=== PATIENT | female | born 1950 | race Caucasian/White ===

== ENCOUNTER → 2017-01-30 | Outpatient (CLI) | payer MEDICARE, BC ==
--- NOTE | 2017-02-04 09:55 | MM ---
Reason for exam: screening (asymptomatic). Last mammogram was performed 1 year and 3 months ago. History: Patient is postmenopausal. Family history of breast cancer in aunt at age 70 and breast cancer in cousin at age 40. Benign excisional biopsy of the right breast, 1985. 3 cyst aspirations of the right breast. Physical Findings: A clinical breast exam by your physician is recommended on an annual basis and results should be correlated with mammographic findings. MG 3D Screening Mammo W/Cad Bilateral CC and MLO view(s) were taken. Prior study comparison: November 14, 2015, mammogram, performed at [facility]. November 03, 2014, mammogram, performed at [facility]. There are scattered fibroglandular densities. Finding: There are typically benign calcifications. There is no discrete abnormality. No significant changes in finding since November 14, 2015 and November 03, 2014. ASSESSMENT: Benign, BI-RAD 2 RECOMMENDATION: Routine screening mammogram of both breasts in 1 year. Manage patient on a clinical basis.
== END | disposition home or self-care (01) ==
LOC: RADMAMWWP 16:27
PROVIDERS: ATTEND Family Medicine
DX: Z12.31 Encounter for screening mammogram for malignant neoplasm of breast (principal)
CPT/HCPCS: 77063; G0202

== ENCOUNTER → 2018-02-23 | Outpatient (CLI) | payer MEDICARE, BC ==
--- NOTE | 2018-02-25 09:26 | MM ---
Reason for exam: screening (asymptomatic). Last mammogram was performed 1 year and 1 month ago. History: Patient is postmenopausal. Family history of breast cancer in aunt at age 70 and breast cancer in cousin at age 40. Benign excisional biopsy of the right breast, 1985. 3 cyst aspirations of the right breast. Physical Findings: A clinical breast exam by your physician is recommended on an annual basis and results should be correlated with mammographic findings. MG 3D Screening Mammo W/Cad Bilateral CC and MLO view(s) were taken. Prior study comparison: January 30, 2017, bilateral MG 3d screening mammo w/cad. November 14, 2015, mammogram, performed at [facility]. There are scattered fibroglandular densities. Central asymmetric density left MLO view does not persist on 3D images. It is also stable from 2016. ASSESSMENT: Negative, BI-RAD 1 RECOMMENDATION: Routine screening mammogram of both breasts in 1 year.
== END | disposition home or self-care (01) ==
LOC: RADMAMWWP 14:50
PROVIDERS: ATTEND Family Medicine
DX: Z12.31 Encounter for screening mammogram for malignant neoplasm of breast (principal)
CPT/HCPCS: 77063; 77067

== ENCOUNTER → 2019-03-18 | Outpatient (CLI) | payer MEDICARE, BC ==
--- NOTE | 2019-03-19 11:56 | MM ---
Reason for exam: screening (asymptomatic). Last mammogram was performed 1 year and 1 month ago. History: Patient is postmenopausal. Family history of breast cancer in aunt at age 70 and breast cancer in cousin at age 40. Benign excisional biopsy of the right breast, 1985. 3 cyst aspirations of the right breast. Physical Findings: A clinical breast exam by your physician is recommended on an annual basis and results should be correlated with mammographic findings. MG 3D Screening Mammo W/Cad Bilateral CC and MLO view(s) were taken. Prior study comparison: February 23, 2018, bilateral MG 3d screening mammo w/cad. January 30, 2017, bilateral MG 3d screening mammo w/cad. The breast tissue is heterogeneously dense. This may lower the sensitivity of mammography. There are benign appearing round calcifications bilaterally. There is chronic nodularity in the right breast. There is no discrete abnormality. ASSESSMENT: Benign, BI-RAD 2 RECOMMENDATION: Routine screening mammogram of both breasts in 1 year.
== END | disposition home or self-care (01) ==
LOC: RADMAMWWP 13:52
PROVIDERS: ATTEND Family Medicine
DX: Z12.31 Encounter for screening mammogram for malignant neoplasm of breast (principal)
CPT/HCPCS: 77063; 77067

== ENCOUNTER → 2019-08-27 | Outpatient (CLI) | payer MEDICARE, BC ==
[2019-08-27 10:52] VITALS: BP 148/78; PULSE 95; RESP 18; TEMP 97.6; BMI 35.9
--- NOTE | 2019-08-27 11:30 | P.GSHP ---
History of Present Illness H&P Date: 08/27/19 Chief Complaint: pain left breast, lump under left arm The patient is a 69 year old white female with a complaint of bilateral upper outer quadrant breast pain. The pain is described as aching and sensation. It is intermittent. It does not radiate. It has been intermittent for approximately 2 years. It never goes completely away. It is approximately a level II out of a scale of 10. Nothing seems to make it better or worse. Of significance is the fact that the patient had a left lung biopsy via an incision near the left breast and a chest tube placed approximately 3 years ago. The patient has hypersensitivity pneumonitis, no cancer. The patient drinks caffeinated beverages Tea/coffee regularly. She does not smoke and is not exposed to secondhand smoke. She eats chocolate occasionally. Patient does not take any hormones or soy products. The patient also complains of some left axillary fullness. She noted this in February 2019. She did have a computed tomography scan performed in April 2019. This revealed bilateral perihilar infiltrates. Some narrowing of the right middle lobe bronchus was questionably present. A 1.8 cm pretracheal lymph node was enlarged. The ascending aorta at the level of the main pulmonary artery was noted to be 3.2 cm. 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 She additionally had a computed tomography scan of her neck performed which did not reveal any suspicious soft tissue abnormalities. The patient has recently finished a steroid taper after starting on 80 mg of prednisone a day in May. The patient has additionally had a bilateral mammogram performed on this was benign BIRADS 2, and she had limited bilateral breast ultrasounds which were negative. Repeat bilateral mammogram in February 2020 is recommended. The patient has had a 4 x 7 cm cyst removed from her right breast in the operating room in the . She has also had several breast cyst drained in the office. Family History: paternal aunt: breast cancer bilateral paternal cousin: breast cancer Hormonal History: menarche: 12 , breast fed: no, first born at 18 menopause: hysterctomy 26, done for endometriosis, took ovaries BCP: 3 years hormones: none Surgical history: 1. Total abdominal hysterectomy at 26 2. Tubal ligation 3. Appendectomy 4. Cholecystectomy 5. Hemilaminectomy 6. Lung biopsy 7. Right breast biopsy open 8. knee arthroscopy 9. Appendectomy scar revised multiple times Medical History: 1. arthritis 2. Hypersensitivity pneumonitis 3. PVC's ablation Social History: smoke: none alcohol: seldom drugs: none - Constitutional Constitutional: Denies chills, Denies fever - EENT Eyes: bilateral blurred vision, denies pain Ears: deny: decreased hearing, tinnitus Ears, nose, mouth and throat: Denies headache, Denies sore throat - Breasts Breasts: bilateral: as per HPI - Cardiovascular Comment: Ablation in the past for PVCs Cardiovascular: Reports shortness of breath, Denies chest pain - Respiratory Comment: Hypersensitivity pneumonitis, follows at [facility] and [facility] - Gastrointestinal Gastrointestinal: Denies abdominal pain, Denies diarrhea, Denies nausea, Denies vomiting - Genitourinary (Female) Genitourinary: Denies dysuria, Denies hematuria - Menstruation Menstruation: Reports post hysterectomy - Musculoskeletal Comment: arthritis - Integumentary Integumentary: Reports rash - Neurological Neurological: Denies numbness, Denies weakness - Psychiatric Psychiatric: Denies anxiety, Denies depression - Endocrine Endocrine: Reports fatigue, Denies weight change - Hematologic/Lymphatic Comment: baby aspirin - Allergic/Immunologic Allergic/Immunologic: Reports as per HPI Past Medical History History of Any Multi-Drug Resistant Organisms: MRSA Date of last positivie culture/infection: 2012 MDRO Source:: BACK SURGERY Smoking Status: Never smoker Medications and Allergies Home Medications Medication Instructions Recorded Confirmed Type Albuterol Sulfate [Proair Hfa] 1 - 2 puff INHALATION Q6HR PRN 08/27/19 08/27/19 History Aspirin 81 mg PO DAILY 08/27/19 08/27/19 History CLIDINIUM-chlordiazePOXIDE [Librax] 1 - 2 each PO AC-TID 08/27/19 08/27/19 History Ibuprofen [Motrin] 600 mg PO Q8HR PRN 08/27/19 08/27/19 History Multivitamin/Iron/Folic Acid 1 each PO DAILY 08/27/19 08/27/19 History [Centrum Women Tablet] Mycophenolate Mofetil [Cellcept] 1,000 mg PO BID 08/27/19 08/27/19 History Omeprazole [PriLOSEC] 20 mg PO AC-BID 08/27/19 08/27/19 History Triamterene-Hctz 37.5-25Mg 1 cap PO DAILY 08/27/19 08/27/19 History [Dyazide 37.5-25 Capsule] Allergies Allergy/AdvReac Type Severity Reaction Status Date / Time acetaminophen [From [place]] Allergy Unknown Unverified 08/27/19 10:44 hydrocodone [From [place]] Allergy Unknown Unverified 08/27/19 10:44 adhesive tape AdvReac Rash/Hives Unverified 08/27/19 10:44 morphine AdvReac Vomiting Unverified 08/27/19 10:44 valacyclovir [From Valtrex] AdvReac Rash/Hives Unverified 08/27/19 10:44 IVP Dye Allergy Anaphylaxis Uncoded 08/27/19 10:44 Surgical - Exam Vital Signs Temp Pulse Resp BP Pulse Ox 97.6 F 95 18 148/78 92 L 08/27/19 10:48 08/27/19 10:48 08/27/19 10:48 08/27/19 10:48 08/27/19 10:48 BMI 35.9 - General obese - Eyes normal ocular movement - ENT normal pinna, no hearing loss - Neck no masses, trachea midline, no lymphadectomy - Respiratory normal expansion, normal respiratory effort, clear to auscultation - Cardiovascular Rhythm: regular Heart Sounds: normal: S1, S2 - Abdomen no organomegaly Abdomen: soft, non tender, no guarding, no rigid, no rebound - Integumentary swelling ankles - Neurologic no disoriented, no combative - Musculoskeletal normal gait, normal posture - Psychiatric oriented to time, oriented to person, oriented to place, speech is normal, memory intact breast exam: right breast: Multiple positional exam no dominant masses or nodules of concern Right axilla: No adenopathy of concern Left breast: Multi-positional exam fibrocystic changes, no dominant masses or nodules of concern Left axilla: There appears to be axillary breast tissue in the exam it does not appear to be worrisome but is asymmetric to the other side, she has no adenopathy of concern Bra: 38 C Results Mammogram and ultrasound results reviewed Assessment and Plan Assessment: Impression: 1. breast pain 2. fibrocystic bresat disease 3. axillary bolus/probable axillary breast tissue 4. Hypersensitivity pulmonary pneumonitis 5. Patient is on a steroid wean at this time 6. Arthritis 7. cardiac ablation Plan: 1. Counseled regarding caffeine effects on breast pain patient is going to decrease this 2. Reassured regarding axillary breast tissue will follow this at this time 3. Patient is weaning off steroids she may notice some changes in her breast as she is weaned off will call if she has any concerns 4. Repeat bilateral mammogram in February 2020 with repeat examination at that time I have discussed the fibrocystic breast changes can be exacerbated by nicotine/theophylline/caffeine. The patient understands and is going to decrease her intake of these things. Additionally we have discussed that the tissue in the axilla is most likely axillary breast tissue at this time I'm not concerned if it changes she is going to see me sooner otherwise I will see her in February after her yearly mammogram. Time 40 minutes CC: Dr. Tobias
== END | disposition home or self-care (01) ==
LOC: WWCWWP 09:59
PROVIDERS: ATTEND Surgery
DX: Z53.9 Procedure and treatment not carried out, unspecified reason (principal)

== ENCOUNTER → 2020-03-23 | Outpatient (CLI) | payer MEDICARE, BC ==
[2020-03-23 11:43] VITALS: BP 144/84; PULSE 91; RESP 18; TEMP 98
--- NOTE | 2020-03-23 12:01 | P.PN ---
Subjective Progress Note Date: 03/23/20 Principal diagnosis: bilateral breast pain The patient is a 69 year old white female with a complaint of bilateral upper outer quadrant breast pain. The pain is described as aching in sensation. It is intermittent. It does not radiate. It has been intermittent for approximately 2 1/2 years. It never goes completely away. It is approximately a level II out of a scale of 10. Nothing seems to make it better or worse. Of significance is the fact that the patient had a left lung biopsy via an incision near the left breast and a chest tube placed approximately 3 years ago. The patient has hypersensitivity pneumonitis, no cancer. The patient has had decreased caffeinated beverages. She does not smoke and is not exposed to secondhand smoke. She eats chocolate occasionally. Patient does not take any hormones or soy products. Pain has improved since she was seen in August. Most recently she had a migraine headache and took several caffeinated products and did notice that the discomfort in her breast was exacerbated. The patient also complained of some left axillary fullness which has resolved. She noted this in February 2019. She did have a computed tomography scan performed in April 2019. This revealed bilateral perihilar infiltrates. Some narrowing of the right middle lobe bronchus was questionably present. A 1.8 cm pretracheal lymph node was enlarged. The ascending aorta at the level of the main pulmonary artery was noted to be 3.2 cm. 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 She additionally had a computed tomography scan of her neck performed which did not reveal any suspicious soft tissue abnormalities. The patient since then finished a steroid taper with decrease in the swelling of her axilla and her neck. The patient has additionally had a bilateral mammogram performed on this was benign BIRADS 2, and she had limited bilateral breast ultrasounds which were negative. She had a bilateral urogram performed on 6419. The patient has had a 4 x 7 cm cyst removed from her right breast in the operating room in the . She has also had several breast cyst drained in the office. Family History: paternal aunt: breast cancer bilateral paternal cousin: breast cancer Hormonal History: menarche: 12 , breast fed: no, first born at 18 menopause: hysterctomy 26, done for endometriosis, took ovaries BCP: 3 years hormones: none Surgical history: 1. Total abdominal hysterectomy at 26 2. Tubal ligation 3. Appendectomy 4. Cholecystectomy 5. Hemilaminectomy 6. Lung biopsy 7. Right breast biopsy open 8. knee arthroscopy 9. Appendectomy scar revised multiple times Medical History: 1. arthritis 2. Hypersensitivity pneumonitis 3. PVC's ablation 4. shingles Social History: smoke: none alcohol: seldom drugs: none - Constitutional Constitutional: Denies chills, Denies fever - EENT Eyes: bilateral blurred vision, denies pain Ears: deny: decreased hearing, tinnitus Ears, nose, mouth and throat: Denies headache, Denies sore throat - Breasts Breasts: bilateral: as per HPI - Cardiovascular Comment: Ablation in the past for PVCs Cardiovascular: Reports shortness of breath, Denies chest pain - Respiratory Comment: Hypersensitivity pneumonitis, follows at [facility] and [facility] - Gastrointestinal Gastrointestinal: Denies abdominal pain, Denies diarrhea, Denies nausea, Denies vomiting - Genitourinary (Female) Genitourinary: Denies dysuria, Denies hematuria - Menstruation Menstruation: Reports post hysterectomy - Musculoskeletal Comment: arthritis - Integumentary Integumentary: Reports rash - Neurological Neurological: Denies numbness, Denies weakness - Psychiatric Psychiatric: Denies anxiety, Denies depression - Endocrine Endocrine: Reports fatigue, Denies weight change - Hematologic/Lymphatic Comment: baby aspirin - Allergic/Immunologic Allergic/Immunologic: Reports as per HPI Past Medical History History of Any Multi-Drug Resistant Organisms: MRSA Date of last positivie culture/infection: 2012 MDRO Source:: BACK SURGERY Smoking Status: Never smoker Objective - Vital Signs Vital signs: Vital Signs Temp 98.0 F 03/23/20 11:39 Pulse 91 03/23/20 11:39 Resp 18 03/23/20 11:39 BP 144/84 03/23/20 11:39 Pulse Ox 93 L 03/23/20 11:39 Intake & Output 03/22/20 03/23/20 03/23/20 18:59 06:59 18:59 Weight 97.976 kg - Exam BMI 37.1 - Constitutional General appearance: Present: obese - EENT Eyes: Present: EOMI ENT: Present: hearing grossly normal - Neck Neck: Present: normal ROM - Respiratory Details: crackles at lung bases, otherwise clear - Cardiovascular Rhythm: regular Heart sounds: normal: S1, S2 - Gastrointestinal General gastrointestinal: Present: soft - Integumentary Integumentary: Present: normal turgor - Musculoskeletal Musculoskeletal: Present: gait normal - Psychiatric Psychiatric: Present: A&O x's 3, appropriate affect, intact judgment & insight - Additional findings Additional findings: Breast examination: Inspection: 2. Ptosis, no skin changes of concern Palpation: Right breast: multiple positional exam no dominant masses or nodules of concern, fibrocystic changes Right axilla: No adenopathy of concern Left breast: Multiple positional exam no dominant mass or nodule is of concern, fibrocystic changes Left axilla: No adenopathy of concern Assessment and Plan Assessment: Impression: 1. Chronic mastodynia/improved 2. Fibrocystic breast changes 3. Stable mammogram Plan: 1. Repeat bilateral mammogram in 1 year 2. Continue to avoid caffeine 3. Patient to call shouldany changes in her breast of concern Cc: Dr. Tobias encounter 20 minutes, greater than 50% of time in planning and counseling Time with Patient: Less than 30
--- NOTE | 2020-03-28 10:53 | MM ---
Reason for exam: screening (asymptomatic). Last mammogram was performed 1 year ago. History: Patient is postmenopausal. Family history of breast cancer in aunt at age 70 and breast cancer in cousin at age 40. Benign excisional biopsy of the right breast, 1985. 3 cyst aspirations of the right breast. Physical Findings: A clinical breast exam by your physician is recommended on an annual basis and results should be correlated with mammographic findings. MG 3D Screening Mammo W/Cad Bilateral CC and MLO view(s) were taken. Prior study comparison: March 18, 2019, bilateral MG 3d screening mammo w/cad. February 23, 2018, bilateral MG 3d screening mammo w/cad. The breast tissue is heterogeneously dense. This may lower the sensitivity of mammography. Benign appearing bilateral calcifications. Previous mammotome biopsy in the right and left breast. No significant changes when compared with prior studies. ASSESSMENT: Benign, BI-RAD 2 RECOMMENDATION: Routine screening mammogram of both breasts in 1 year.
== END | disposition home or self-care (01) ==
LOC: RADMAMWWP 10:47
PROVIDERS: ATTEND Surgery
DX: Z12.31 Encounter for screening mammogram for malignant neoplasm of breast (principal); N64.4 Mastodynia; N60.19 Diffuse cystic mastopathy of unspecified breast; Z80.3 Family history of malignant neoplasm of breast; Z90.710 Acquired absence of both cervix and uterus; Z98.51 Tubal ligation status; Z90.49 Acquired absence of other specified parts of digestive tract; Z98.890 Other specified postprocedural states; M19.90 Unspecified osteoarthritis, unspecified site; Z87.01 Personal history of pneumonia (recurrent); Z83.1 Family history of other infectious and parasitic diseases; Z86.14 Personal history of Methicillin resistant Staphylococcus aureus infection
CPT/HCPCS: 77063; 77067

== ENCOUNTER → 2020-06-09 | Outpatient (CLI) | payer MEDICARE, BC | END | disposition home or self-care (01) | LOC: RADMRIMAIN 20:06 | PROVIDERS: ATTEND Emergency Medicine Emergency Medical Services | DX: Z53.9 Procedure and treatment not carried out, unspecified reason (principal) ==

== ENCOUNTER → 2020-06-29 | Outpatient (CLI) | payer MEDICARE, BC ==
[2020-06-29 11:11] LABS: HGB 13.8 gm/dL (11.4-16.0); MCH 28.4 pg (25.0-35.0); MCHC 31.4 g/dL (31.0-37.0); MCV 90.3 fL (80.0-100.0); Mean Platelet Volume 8.7; Platelet Count 342 k/uL (150-450); RBC 4.87 m/uL (3.80-5.40); RDW 13.2 % (11.5-15.5); WBC 9.1 k/uL (3.8-10.6)
[2020-06-29 15:32] LABS: African American GFR (CKD) 66.1 (60.0-200.0); Albumin 4.4 g/dL (3.80-4.90); Albumin/Globulin Ratio 2.1 (1.60-3.17); Globulin 2.1 g/dL (1.6-3.3); Potassium 4.5 mmol/L (3.5-5.5); Total Bilirubin 0.4 mg/dL (0.3-1.2); Total Protein 6.5 g/dL (6.2-8.2)
== END | disposition home or self-care (01) ==
LOC: LABWHC1 10:09
PROVIDERS: ATTEND Physician Assistant
DX: K86.89 Other specified diseases of pancreas (principal)
CPT/HCPCS: 36415; 80053; 85027; 86301

== ENCOUNTER 2020-12-26 08:41 | Day surgery (SDC) | payer MEDICARE, BC ==
[2020-12-22 09:27] VITALS: BMI 32.8
[~2020-12-26 08:41] MED LIST: LACTATED RINGERS 1,000 ML IV SCH; LIDOCAINE 1% (10MG/ML) FOR IV START INTRADERMA PRN
[2020-12-26 09:21] VITALS: TEMP 98.4
[2020-12-26] MEDS ORDERED: PROPOFOL 10 MG/ML 20 ML VIAL IV ONE (09:54)
[2020-12-26] MEDS ORDERED: LIDOCAINE 1% INJ 10MG/ML (20 ML MDV) ONE (09:54)
--- NOTE | 2020-12-26 10:37 | P.PCN ---
Date of Procedure: 12/26/20 Description of Procedure: BRIEF HISTORY: Patient is a 70-year-old female presenting for colonoscopy for evaluation of diarrhea and altered bowel function. Patient does have a known history of IBS diarrhea predominant reports worsening of her symptoms. Last colonoscopy 7 years ago. PROCEDURE PERFORMED: Colonoscopy with biopsy. PREOPERATIVE DIAGNOSIS: Diarrhea, altered bowel function, less colonoscopy 7 years ago. ESTIMATED BLOOD LOSS: Minimal. IV sedation per Anesthesia. PROCEDURE: After informed consent was obtained, the patient, was brought into the endoscopy unit. IV sedation was administered by Anesthesia under continuous monitoring. Digital rectal examination was normal. Initially the Olympus CF-190 flexible video colonoscope was then inserted in the rectum, gradually advanced into the cecum without any difficulty. Careful examination was performed as the scope was gradually being withdrawn. Ileocecal valve and the appendiceal orifice were visualized and appeared normal. Prep was excellent. Mucosa of the cecum, ascending colon, transverse colon, descending colon, sigmoid colon, and rectum appeared normal with biopsies of the right and left colon. The terminal ileum was intubated and appeared normal with biopsies taken. A few scattered diverticula in the sigmoid colon. Retroflexion was performed in the rectum and no lesions were seen. The patient tolerated the procedure well. IMPRESSION: Normal-appearing colon from rectum to cecum and normal-appearing terminal ileum with random biopsies taken of the right colon, left colon and terminal ileum. Mild sigmoid diverticulosis. RECOMMENDATIONS: Findings of this examination were discussed with the patient and her family. Okay to resume diet. Okay to resume medications. Await pathology from biopsies. Recommend follow-up in the GI clinic in the next 2-3 weeks for results of biopsies and further management.
[2020-12-26 10:55] VITALS: BP 117/71; PULSE 84; RESP 16
== END 2020-12-26 11:20 | disposition home or self-care (01) ==
LOC: ORWHC2ENDO 08:41
PROVIDERS: ATTEND Internal Medicine
DX: K57.30 Diverticulosis of large intestine without perforation or abscess without bleeding (principal); K52.832 Lymphocytic colitis; R19.4 Change in bowel habit
CPT/HCPCS: 88305; 45380; J2001; J2704

== ENCOUNTER → 2021-03-26 | Outpatient (CLI) | payer MEDICARE, BC ==
--- NOTE | 2021-03-28 11:00 | MM ---
Reason for exam: screening (asymptomatic). Last mammogram was performed 1 year ago. History: Patient is postmenopausal. Family history of breast cancer in aunt at age 70 and breast cancer in cousin at age 40. Benign excisional biopsy of the right breast, 1985. 3 cyst aspirations of the right breast. Physical Findings: A clinical breast exam by your physician is recommended on an annual basis and results should be correlated with mammographic findings. MG 3D Screening Mammo W/Cad Bilateral CC and MLO view(s) were taken. Prior study comparison: March 23, 2020, bilateral MG 3d screening mammo w/cad. March 18, 2019, bilateral MG 3d screening mammo w/cad. There are scattered fibroglandular densities. There are benign appearing round calcifications bilaterally. No significant changes when compared with prior studies. ASSESSMENT: Benign, BI-RAD 2 RECOMMENDATION: Routine screening mammogram of both breasts in 1 year.
== END | disposition home or self-care (01) ==
LOC: RADMAMWWP 09:44
PROVIDERS: ATTEND Surgery
DX: Z12.31 Encounter for screening mammogram for malignant neoplasm of breast (principal); Z78.0 Asymptomatic menopausal state; Z80.3 Family history of malignant neoplasm of breast
CPT/HCPCS: 77063; 77067

== ENCOUNTER → 2021-03-30 | Outpatient (CLI) | payer MEDICARE, BC ==
[2021-03-30 10:59] VITALS: BP 140/80; PULSE 90; RESP 16; TEMP 97.7
--- NOTE | 2021-03-30 11:26 | P.PN ---
Subjective Progress Note Date: 03/30/21 Principal diagnosis: breast pain/ improved bilateral breast pain The patient is a 70 year old white female with a complaint of bilateral upper outer quadrant breast pain. The pain is described as aching in sensation. It is intermittent. It does not radiate. It has been intermittent for approximately 2 1/2 years. It never goes completely away. It is approximately a level II out of a scale of 10. Nothing seems to make it better or worse. Of significance is the fact that the patient had a left lung biopsy via an incision near the left breast and a chest tube placed approximately 3 years ago. The patient has hypersensitivity pneumonitis, no cancer. The patient has had decreased caffeinated beverages. She does not smoke and is not exposed to secondhand smoke. She eats chocolate occasionally. Patient does not take any hormones or soy products. Pain has improved since she was seen in August. Most recently she had a migraine headache and took several caffeinated products and did notice that the discomfort in her breast was exacerbated. The patient also complained of some left axillary fullness which has resolved. She noted this in February 2019. She did have a computed tomography scan performed in April 2019. This revealed bilateral perihilar infiltrates. Some narrowing of the right middle lobe bronchus was questionably present. A 1.8 cm pretracheal lymph node was enlarged. The ascending aorta at the level of the main pulmonary artery was noted to be 3.2 cm. 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 She additionally had a computed tomography scan of her neck performed which did not reveal any suspicious soft tissue abnormalities. The patient since then finished a steroid taper with decrease in the swelling of her axilla and her neck. The patient [place] [address] this was benign BIRADS 2, and she had limited bilateral breast ultrasounds which were negative. She had a bilateral mammogram performed on 63. The patient has had a 4 x 7 cm cyst removed from her right breast in the operating room in the . She has also had several breast cyst drained in the office. 03-30-21 Jyoti had a bilateral mammogram performed and 66. This was benign BIRADS 2. At this time she has decreased her caffeine intake and has decreased breast discomfort. She is not complaining of any new lumps masses or nodules. The patient's hypersensitivity pneumonitis which was diagnosed in 2018 is felt to be related to chicken maneuver as fertilizer in her neighborhood. She is being treated with CellCept for this. She follows for this at [facility] she is seen every three months. Family History: paternal aunt: breast cancer bilateral paternal cousin: breast cancer Hormonal History: menarche: 12 , breast fed: no, first born at 18 menopause: hysterctomy 26, done for endometriosis, took ovaries BCP: 3 years hormones: none Surgical history: 1. Total abdominal hysterectomy at 26 2. Tubal ligation 3. Appendectomy 4. Cholecystectomy 5. Hemilaminectomy 6. Lung biopsy 7. Right breast biopsy open 8. knee arthroscopy 9. Appendectomy scar revised multiple times 10. lung biopsy 2019 11. pancreas biopsy 2020; three spots biopsy nonspecific and will have it redone 12. Colonoscopy in 2020 biopsies revealed lymphocytic colitis believed to be related to exposure to the chicken manure Medical History: 1. arthritis 2. Hypersensitivity pneumonitis 3. PVC's ablation 4. shingles Social History: smoke: none alcohol: seldom drugs: none - Constitutional Constitutional: Denies chills, Denies fever - EENT Eyes: bilateral blurred vision, denies pain Ears: deny: decreased hearing, tinnitus Ears, nose, mouth and throat: Denies headache, Denies sore throat - Breasts Breasts: bilateral: as per HPI - Cardiovascular Comment: Ablation in the past for PVCs Cardiovascular: Reports shortness of breath, Denies chest pain - Respiratory Comment: Hypersensitivity pneumonitis, follows at [facility] and [facility] - Gastrointestinal Gastrointestinal: Denies abdominal pain, Denies diarrhea, Denies nausea, Denies vomiting - Genitourinary (Female) Genitourinary: Denies dysuria, Denies hematuria - Menstruation Menstruation: Reports post hysterectomy - Musculoskeletal Comment: arthritis - Integumentary Integumentary: Reports rash - Neurological Neurological: Denies numbness, Denies weakness - Psychiatric Psychiatric: Denies anxiety, Denies depression - Endocrine Endocrine: Reports fatigue, Denies weight change - Hematologic/Lymphatic Comment: baby aspirin - Allergic/Immunologic Allergic/Immunologic: Reports as per HPI Objective - Vital Signs Vital signs: Vital Signs Temp 97.7 F 03/30/21 10:46 Pulse 90 03/30/21 10:46 Resp 16 03/30/21 10:46 BP 140/80 03/30/21 10:46 Pulse Ox 98 03/30/21 10:46 Intake & Output 03/29/21 03/30/21 03/30/21 18:59 06:59 18:59 Weight 81.647 kg - Exam BMI 31.9 - Constitutional General appearance: Present: average body habitus - EENT Eyes: Present: EOMI ENT: Present: hearing grossly normal - Neck Neck: Present: normal ROM - Respiratory Respiratory: bilateral: CTA - Cardiovascular Rhythm: regular Heart sounds: normal: S1, S2 - Gastrointestinal General gastrointestinal: Present: soft - Integumentary Integumentary: Present: normal turgor - Musculoskeletal Musculoskeletal: Present: gait normal - Psychiatric Psychiatric: Present: A&O x's 3, appropriate affect, intact judgment & insight - Additional findings Additional findings: Breast examination: BRA: 38C Inspection: Grade 2/3 ptosis bilateral Palpation: Right breast: Multiple positional exam fibrocystic changes no dominant masses or nodules of concern Right axilla: No adenopathy of concern Left breast: Multi-positional exam fibrocystic changes no dominant masses or nodules of concern Left axilla: No adenopathy of concern Assessment and Plan Assessment: Impression: 1. arthritis 2. Hypersensitivity pneumonitis 3. PVC's ablation 4. shingles 5. Fibrocystic breast changes improved as patient is decreased caffeine intake 6. Mastodynia improved Plan: 1. Continue lifestyle modification of decreased caffeine 2. Repeat bilateral mammogram in 1 year with physician exam at that time Cc: Meryl Rascon
== END ==
LOC: WWCWWP 10:36
PROVIDERS: ATTEND Surgery
DX: N60.11 Diffuse cystic mastopathy of right breast (principal); N60.12 Diffuse cystic mastopathy of left breast; M19.90 Unspecified osteoarthritis, unspecified site; J67.9 Hypersensitivity pneumonitis due to unspecified organic dust; B02.9 Zoster without complications

== ENCOUNTER → 2023-03-28 | Outpatient (CLI) | payer MEDICARE, BC ==
--- NOTE | 2023-04-01 11:07 | MM ---
Reason for Exam: Screening (asymptomatic). Last mammogram was performed 2 year(s) and 0 month(s) ago. Patient History: Menarche at age 12. First Full-Term at age 19. Left ovary removed at age 26. Right ovary removed at age 26. Hysterectomy at age 26. Postmenopausal. Cyst Aspiration on the Right side. Cyst Aspiration on the Right side. Cyst Aspiration on the Right side. 1985, Benign Excisional Biopsy on the right side. Maternal cousin had breast cancer, age 40. Maternal aunt had breast cancer, age 70. Risk Values: Kristen 5 year model risk: 1.9%. NCI Lifetime model risk: 4.6%. Prior Study Comparison: 03/18/2019 Bilateral Screening Mammogram, [facility]. 03/23/2020 Bilateral Screening Mammogram, [facility]. 03/26/2021 Bilateral Screening Mammogram, [facility]. Tissue Density: The breast tissue is heterogeneously dense. This may lower the sensitivity of mammography. Findings: Analyzed By CAD. There is no suspicious group of microcalcifications or new suspicious mass in either breast. Previous mammotome biopsy within both breasts. Postexcisional changes of the right breast. Benign-appearing round calcifications within both breasts. Overall Assessment: Benign, BI-RAD 2 Management: Screening Mammogram of both breasts in 1 year. A clinical breast exam by your physician is recommended on an annual basis and results should be correlated with mammographic findings. Note on Kristen scores and lifetime risk: 1. A Kristen score greater than 3% is considered moderate risk. If this is the case, consider specialist referral to assess eligibility for a risk reducing agent. If overall lifetime risk for the development of breast cancer is 20% or higher, the patient may qualify for future screening with alternating mammogram and breast MRI. Electronically signed and approved by: Karson Contreras D.O.
== END | disposition home or self-care (01) ==
LOC: RADMAMWWP 15:45
PROVIDERS: ATTEND Family Medicine
DX: Z12.31 Encounter for screening mammogram for malignant neoplasm of breast (principal); Z78.0 Asymptomatic menopausal state; Z80.3 Family history of malignant neoplasm of breast
CPT/HCPCS: 77063; 77067

== ENCOUNTER → 2024-05-28 | Outpatient (CLI) | payer MEDICARE, BC ==
--- NOTE | 2024-06-25 12:39 | PE ---
Patient: Jyoti Decker Ordering Physician: Unknown, Unknown ID: [id number] Phone, Pager: Phone: N /A Pager: N/A : [phone] Age/Gender: 73Y, F Primary Location: N/A Procedure: PETCT SKULL TO THIG H Study Date: 05/28/2024 3:31:00 PM EXAMINATION TYPE: PET CT fusion skull to thigh DATE OF EXAM: 06/08/2024 CLINICAL INDICATION: Bone cancer TECHNIQUE: Following the intravenous administration of 10.71 mCi of F-18 FDG, whole body images are performed from the skull base to the midthigh. Images are reviewed on the computer in the coronal, axial, and sagittal planes. Reconstructed rotating images are created on independent workstation and reviewed on the computer. A non-contrast CT is performed in conjunction with the PET scan. Glucose level 213 mg/dL CT DLP: 266 mGycm, Automated exposure control for dose reduction was used. COMPARISON: CT 04/28/2019, PET/CT None, MRI: None FINDINGS: Mediastinal SUV mean is 1.3. Hepatic parenchyma SUV mean is 2.1 SKULL BASE AND NECK: No suspicious radiotracer activity. CHEST, MEDIASTINUM, AND HILAR REGION: Emphysematous changes are seen throughout the lungs with superimposed consolidation. Bronchiectasis a nd bronchial wall thickening noted bilaterally. Findings most pronounced anteriorly in the middle lob e and the lingula. FDG activity within the right middle lobe max SUV 4.2. ABDOMEN AND PELVIS: * Some uptake within the left upper abdomen mesentery max SUV 3.8. * Uptake scattered throughout the bowel in the left upper quadrant near surgical sutures. MUSCULOSKELETAL STRUCTURES: No suspicious radiotracer activity. OTHER CT: Bilaterally aphakia atherosclerosis of the arterial vasculature. Left humerus fixation hard montero present. Mild cardiomegaly. Post surgical cyst changes upper abdomen. The gallbladder surgically absent. Postsurgical changes to the spine with laminectomy. Emphysema changes throughout the lungs. Left hip fixation screws present. IMPRESSION: 1. High blood sugar level limits evaluation and will artificially decrease in FDG activity of lesion s. 2. No abnormal uptake within osseous structures. 3. Emphysema changes which have a predilection for the middle lobe and lingula. Correlate for atypic al pneumonias such as in the setting of lady [place] syndrome with nontuberculosis mycobacterium a vium complex infection's. 4. Nonspecific uptake within the left upper abdomen mesentery. Short-term follow-up and correlation with history recommended. Unclear if is a lymph node or inflammation changes.
== END | disposition home or self-care (01) ==
LOC: RADPETMAIN 14:00
PROVIDERS: ATTEND Internal Medicine
DX: J43.9 Emphysema, unspecified (principal); D48.0 Neoplasm of uncertain behavior of bone and articular cartilage; I26.99 Other pulmonary embolism without acute cor pulmonale; I82.729 Chronic embolism and thrombosis of deep veins of unspecified upper extremity; E11.9 Type 2 diabetes mellitus without complications; M12.9 Arthropathy, unspecified; R93.5 Abnormal findings on diagnostic imaging of other abdominal regions, including retroperitoneum
CPT/HCPCS: 78815; A9552